=== PATIENT | female | born 1995 | race Caucasian/White ===

== ENCOUNTER → 2017-12-16 11:25 | Outpatient (CLI) | payer OTHER, SELFPAY ==
[2017-12-16 12:09] LABS: HCG,Quantitative 20 mIU/mL
== END ==
PROVIDERS: Visit Provider Obstetrics & Gynecology
DX: Z34.90 Encounter for supervision of normal pregnancy, unspecified, unspecified trimester (principal)
CPT/HCPCS: 36415; 84702

== ENCOUNTER → 2018-05-22 10:34 | Outpatient (CLI) | payer OTHER, SELFPAY ==
[2018-05-22 11:36] LABS: HCG,Quantitative 161 mIU/mL
== END ==
PROVIDERS: Visit Provider Nurse Practitioner Obstetrics & Gynecology
DX: Z34.90 Encounter for supervision of normal pregnancy, unspecified, unspecified trimester (principal)
CPT/HCPCS: 36415; 84702

== ENCOUNTER → 2018-05-24 16:44 | Outpatient (CLI) | payer OTHER, SELFPAY ==
[2018-05-24 18:19] LABS: HCG,Quantitative 594 mIU/mL
== END ==
PROVIDERS: Visit Provider Obstetrics & Gynecology
DX: Z34.90 Encounter for supervision of normal pregnancy, unspecified, unspecified trimester (principal)
CPT/HCPCS: 36415; 84702

== ENCOUNTER 2018-06-09 12:04 | Outpatient (CLI) | payer OTHER, SELFPAY ==
[2018-06-09 12:40] VITALS: BP 105/66; PULSE 96; RESP 18
[2018-06-09 13:40] VITALS: BP 122/74; PULSE 103; RESP 16
[2018-06-09 14:40] VITALS: BP 117/62; PULSE 109; RESP 18
== END 2018-06-09 14:50 | disposition home or self-care (01) ==
LOC: INF 12:06
PROVIDERS: PCP Physician Assistant; Visit Provider Obstetrics & Gynecology
DX: E86.0 Dehydration (principal)
CPT/HCPCS: 96360; 96361

== ENCOUNTER → 2018-06-28 10:16 | Outpatient (CLI) | payer BC, SELFPAY ==
--- NOTE | 2018-06-28 10:18 | US_ITS ---
US OB transvaginal HISTORY: ITS.REASON: US OB Dates ORDERING PHYSICIAN: Juliana Hart MD PATIENT AGE: 23 years COMPARISON: None FINDINGS: An intrauterine gestational sac is present with a pole with a crown-rump length of 2.54cm correlating to gestational age of 9w3d. heart tones are present with an FHR of 146 bpm's. Yolk sac is noted. The amnion and chorion have not yet fused. Adnexa: Unremarkable. IMPRESSION: Live intrauterine gestation at 9 weeks 3 days as described above. Estimated due date by Ultrasound is 01/28/2019
[2018-06-28 11:55] LABS: Basophils % 0.3 % (0.1-2.0); Eosinophils # 0.1 K/mm3 (0.0-0.4); Eosinophils % 0.8 % (0.1-12.0); Hematocrit 40.3 % (37.0-47.0); Hemoglobin 13.4 g/dL (12.2-16.2); Lymphocytes # 1.2 K/mm3 (0.7-4.5); Lymphocytes % 19.2 % (10-50); Mean Corpuscular HGB Conc 33.2 g/dL (31.8-35.4); Mean Corpuscular Hemoglobin 28.5 pg (27.0-31.2); Mean Corpuscular Volume 85.9 fl (81-99); Mean Platelet Volume 7.6 fl (7.4-10.4); Monocytes # 0.3 K/mm3 (0.1-1.0); Monocytes % 4.5 % (1.7-9.3); Neutrophils # 4.6 K/mm3 (1.8-7.8); Neutrophils % 75.2 % (37.0-80.0); Platelet Count 245 K/mm3 (142-424); Red Cell Distribution Width 12.3 % (11.5-17.5); White Blood Count 6.1 K/mm3 (4.8-10.8)
[2018-06-29 14:00] LABS: HIV Screen 4th Generation wRfx Non Reactive (Non Reactive); Hepatitis B Surface Antigen Negative (Negative); Hepatitis C Antibody 0.2 s/co ratio (0.0-0.9); Rapid Plasma Reagin Ab Titer Non Reactive (NonRea<1:1); Rubella Antibodies, IgG 1.61 index (Immune >0.99)
== END ==
PROVIDERS: PCP Physician Assistant; Visit Provider Obstetrics & Gynecology
DX: O26.841 Uterine size-date discrepancy, first trimester (principal)
CPT/HCPCS: 36415; 76817; 85025; 86592; 86703; 86762; 86850; 87340; 87380; G0432

== ENCOUNTER → 2018-06-28 10:52 | Outpatient (CLI) | payer BC, SELFPAY | PROVIDERS: Visit Provider Obstetrics & Gynecology | DX: Z34.90 Encounter for supervision of normal pregnancy, unspecified, unspecified trimester (principal) | CPT/HCPCS: 36415; 85025; 86592; 86703; 86762; 86850; 87340; 87380; G0432 ==

== ENCOUNTER → 2018-09-13 13:38 | Outpatient (CLI) | payer BC, SELFPAY ==
--- NOTE | 2018-09-13 13:43 | US_ITS ---
US OB /maternal detail: INDICATION: ITS.REASON: US OB Complete ORDERING PHYSICIAN: Juliana Hart MD PATIENT AGE: 23 years TECHNIQUE: ultrasound transabdominal scanning. COMPARISON: No previous relevant studies. FINDINGS: Single viable intrauterine gestation. Ceph position. Placenta: Post/Lat placenta grade 1. There is average amount fluid. The cervix appears satisfactory. Closed and measuring 2.4 cm in length. Complete survey performed and was unremarkable on the submitted images as in PACS. No discrete anomalies identified on survey imaging by technologist. Active fetus. Three-vessel cord with satisfactory umbilical cord insertion. 4- chamber heart noted. Survey of brain & ventricles unremarkable. Face and neck survey unremarkable. Diaphragm and chest views unremarkable. Abdomen: Both kidneys noted and unremarkable. Stomach noted and satisfactory. Spine: Survey of the spine satisfactory with no anomalies identified nor imaged. Both arms and legs noted. Amniotic Fluid: Adequate. Maternal adnexa: No significant findings. Measurements: Average ultrasound age 20w1d. Gestational Age 20w6d. Estimated due date by ultrasound age 0801/30/2019. Estimated weight 333 grams. BPD = 20w2d OFD = 206wd HC = 19w6d AC = 20w5d FL = 19w5d Growth Percentile= 13 percent Heart Rate = 144 Cerebellum = 20w1d Humerus = 19w5d HC/AC is 1.12 (1.09-1.26). CI is 76% (70-86%). FL/BPD is 66%. FL/AC is 20%. IMPRESSION: There is a single live fetus which is in cephalic presentation with average ultrasound age of 20 weeks and 1 day. heart and body motion noted. No obvious anomalies. All parameters correlate. Please see above for detail. The placenta is posterior and grade 1 with an average appearing amount of amniotic fluid
== END ==
PROVIDERS: PCP Physician Assistant; Visit Provider Obstetrics & Gynecology
DX: Z36.0 Encounter for antenatal screening for chromosomal anomalies (principal)
CPT/HCPCS: 76811

== ENCOUNTER → 2018-10-23 08:28 | Outpatient (CLI) | payer BC, SELFPAY ==
[2018-10-23 09:14] LABS: Glucose,Fasting 77 mg/dL (60-105)
[2018-10-23 10:24] LABS: Glucose 1 Hour 133 mg/dL (74-106)
== END ==
PROVIDERS: Visit Provider Obstetrics & Gynecology
DX: Z34.90 Encounter for supervision of normal pregnancy, unspecified, unspecified trimester (principal); Z3A.28 28 weeks gestation of pregnancy
CPT/HCPCS: 36415; 82951; J2790

== ENCOUNTER → 2018-10-23 10:20 | Outpatient (CLI) | payer BC, SELFPAY ==
[2018-10-23 10:29] VITALS: BMI 24.7
[2018-10-23 10:50] VITALS: BP 116/71; PULSE 92; RESP 18; TEMP 36.7; O2SAT 98
--- NOTE | 2018-10-23 10:50 | PC.NURSE ---
PATIENT PRESENTS TO THE OB FROM LAB, SHE HAD HER RHOGAM BLOOD DRAWN FOR HER PROPHYLATIC INJECTION FOR [address], [address] EDUARDO TOLD HER SHE COULD GO AHEAD AND HAVE INJECTION DONE AT THE SAME TIME HER LAB DRAW AND GLUCOSE SCREENING. 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 RHOGAM INJECTION WAS GIVEN IN HER RGM AT 1050 AND PATIENT TOLERATED WELL.
== END ==
PROVIDERS: PCP Physician Assistant; Referring Provider Obstetrics & Gynecology; Visit Provider Obstetrics & Gynecology
DX: Z34.90 Encounter for supervision of normal pregnancy, unspecified, unspecified trimester (principal); Z3A.28 28 weeks gestation of pregnancy
CPT/HCPCS: 96372; J2790

== ENCOUNTER → 2018-12-22 13:45 | Outpatient (CLI) | payer BC, SELFPAY ==
--- NOTE | 2018-12-22 13:52 | US_ITS ---
US OB follow up: Indication: ITS.REASON: US OB- GROWTH XAVI- SGA ORDERING PHYSICIAN: Juliana Hatr MD PATIENT AGE: 23 years FINDINGS: Transabdominal imaging The following parameters are obtained: Average ultrasound age is 34w5d. Estimated due date by ultrasound is 01/27/2019. Estimated weight is 2543g . This is 40 percentile BPD: 34w1d OFD: 34w4d HC: 34w0d AC: 35w2d FL: 35w1d heart rate: 133 bpm. HC/AC: 0.97 (0.93-1.11) Cephalic index: 78% (70-86%) FL/BPD: 81% (71-87%) FL/AC: 22% (20-24%) Amniotic fluid index: 11 cm No obvious anomalies evident. Placenta: Posterior, GR2 Cervix: Appears closed and measures 3 cm IMPRESSION: There is a single live fetus present which is in cephalic presentation with an average ultrasound age of 34 weeks and 5 days. Estimated weight is 2543 g which is 40 percentile. There is posterior placenta which is grade 2. Please see above for details.
== END ==
PROVIDERS: PCP Physician Assistant; Visit Provider Obstetrics & Gynecology
DX: O36.5990 Maternal care for other known or suspected poor fetal growth, unspecified trimester, not applicable or unspecified (principal)
CPT/HCPCS: 76816

== ENCOUNTER → 2018-12-27 15:57 | Outpatient (CLI) | payer BC, SELFPAY | PROVIDERS: Visit Provider Obstetrics & Gynecology | DX: Z34.90 Encounter for supervision of normal pregnancy, unspecified, unspecified trimester (principal) | CPT/HCPCS: 86403 ==

== ENCOUNTER 2019-01-11 20:50 | Inpatient (IN) ==
[2019-01-11 22:12] LABS: Basophils % 0.4 % (0.1-2.0); Eosinophils # 0.1 K/mm3 (0.0-0.4); Eosinophils % 1.1 % (0.1-12.0); Hematocrit 37.3 % (37.0-47.0); Hemoglobin 12.2 g/dL (12.2-16.2); Lymphocytes # 2.4 K/mm3 (0.7-4.5); Lymphocytes % 23.8 % (10-50); Mean Corpuscular HGB Conc 32.6 g/dL (31.8-35.4); Mean Corpuscular Volume 85.3 fl (81-99); Mean Platelet Volume 9.7 fl (7.4-10.4); Monocytes # 0.5 K/mm3 (0.1-1.0); Monocytes % 4.6 % (1.7-9.3); Neutrophils # 6.9 K/mm3 (1.8-7.8); Neutrophils % 70.1 % (37.0-80.0); Platelet Count 219 K/mm3 (142-424); Red Blood Count 4.38 M/mm3 (4.20-5.40); Red Cell Distribution Width 12.8 % (11.5-17.5); White Blood Count 9.9 K/mm3 (4.8-10.8)
--- NOTE | 2019-01-12 08:09 | History & Physical Report ---
OB - H&P: HPI Antepartum - History of Present Illness Chief complaint: Contractions History of present illness: She is a 23-year-old 1 para 0 at 38 weeks gestational age. She began having contractions last evening and came into labor and delivery. She was found to be 5 to 6 cm dilated and having regular contractions every 2 to 3 minutes. As a result of that she was admitted for delivery. - History of Present Criteria for establishing EDC:: LMP confirmed by 1st trimester US care: good care Ultrasounds: normal 1st trimester US, normal mid trimester US Obstetrical complications: none Medical complications: none - Labs GBS status: negative [facility] History I have reviewed the patient's past medical history: Yes Medical History: Reports:: Anxiety, Migraine Denies:: Depression, Diabetes Mellitus Type 1, Hyperlipidemia, Hypertension, MRSA, Seizures *Have you ever received a pneumonia vaccine?: No *Have you received a flu vaccine this season?: Yes Other Surgeries: No: Amputation: No Fractures: No - *Social History Smoking Status: Never smoker Alcohol Intake: current Alcohol Intake Frequency:: holidays/special occasions only Substance Use Type: denies use *Occupational Status:: employed *Travel in the last 8 weeks: None - Psychiatric History Pschychiatric History:: Reports:: Anxiety Denies:: Depression Family Hx:: Diabetes, Heart Attack, Thyroid Disorder, Stroke, Kidney Disease, Hypertension, Hyperlipidemia, Asthma, Anemia Para: 0 Review of Systems - Review of Systems Review of systems:: pertinent systems reviewed and negative unless documented below Meds Home Medications Medication Instructions Recorded Confirmed Type Vit Calc,Iron,Folic 1 tab PO HS 06/09/18 01/12/19 History [ Vitamin] Allergies Allergy/AdvReac Type Severity Reaction Status Date / Time cinnamon Allergy Mild Verified 01/10/19 08:32 OB - H&P: Exam - Constitutional no acute distress - Routine HEENT Exam Head: Present: normocephalic Eye: Present: EOMI, PERRL ENT: Present: mucous membranes moist - Routine Neck Exam Present: supple, full ROM - Routine Respiratory Exam Absent: accessory muscle use (good air entry bilaterally), respiratory distress, wheezes, crackles - Routine Cardiovascular Exam Present: RRR. Absent: murmur - Routine Abdominal Exam Present: soft, normoactive bowel sounds. Absent: tenderness, distended, guarding - Routine Rectal Exam Patient deferred: visual exam, digital exam - Routine Exam Patient deferred: external exam, groin exam, perineal exam Comments: Her cervix this morning is 6 to 7 cm, 90% and station 0. Nonstress test is reactive and she is haris irregularly every 7 minutes. I ruptured her membranes and there was clear fluid - Routine Extremities Exam Present: full ROM. Absent: cyanosis, edema - Routine Skin Exam Present: intact. Absent: cyanosis - Routine Neurological Exam Present: alert, oriented X3 - Routine Psychiatric Exam Present: normal affect OB - Results - Labs Labs: Short CBC 01/11/19 Range/Units 21:40 WBC 9.9 (4.8-10.8) K/mm3 Hgb 12.2 (12.2-16.2) g/dL Hct 37.3 (37.0-47.0) % Plt Count 219 (142-424) K/mm3 OB - A/P Antepartum (1) Normal delivery at term Current visit: Yes Status: Acute - Additional Plan Planning to breastfeed?: Yes Plan: expectant management Additional Information:: I ruptured her membranes and there was clear fluid. She is now 6 to 7 cm dil ated. We will expect a vaginal delivery.
[2019-01-12 08:51] LABS: Microscopic, Urine URINE MICROSCOPIC (MICROSCOPIC)
[2019-01-12 09:11] LABS: Appearance,Urine SL CLOUDY (Clear); Bilirubin,Urine Negative (Negative); Blood, Urine 3+ (Negative); Color,Urine YELLOW (Yellow); Glucose,Urine (UA) Negative (Negative); Ketones,Urine Negative (Negative); Leukocyte Esterase,Urine 1+ (Negative); Protein,Urine Negative (Negative); Specific Gravity, Urine <= 1.005 (1.005-1.030); Urobilinogen,Urine 0.2 EU/dl (0.2)
[2019-01-12 09:20] LABS: Amphetamine/Metha Screen,Urine Negative ng/mL (<1000); Barbiturates Screen,Urine Negative ng/mL (<200); Benzodiazepines Screen,Urine Negative ng/mL (<200); Cannabinoid Screen,Urine Negative ng/mL (<50); Cocaine Screen,Urine Negative ng/mL (<300); Methadone Screen,Urine Negative ng/mL (<300); Opiate Screen,Urine Negative ng/mL (<300); Phencyclidine Screen,Urine Negative ng/mL (<25)
[2019-01-12 09:33] LABS: Bacteria,Urine Trace /lpf; Squamous Epithelial Cell,Urine Occasional #/hpf (0-5)
--- NOTE | 2019-01-12 09:36 | Progress Note ---
[facility] Anesthesia Checklist - Patient Identification Patient Identification: Arm Band - Structural Data Admitted From: Home Planned Operative Procedure/s: labor epidural Consent for Planned Operative Procedure(s) Verified: Yes Verified Documents: Surgical Consent, History and Physical - NPO Status Verified Time NPO: 00:00 - Additional verifications Anesthesia Reactions: No - Airway Assessment C-Spine Mobility Assessed: Yes (mp2) TMJ Mobility Assessed: Yes Dentition: Good Dentition - Neurological Assessment Level of Consciousness: Awake, Alert - Anesthesia Plan Anesthesia Risk discussed: Yes Anesthesia Plan: Verified ASA Class: II Anesthesia Type: Epidural [facility] History I have reviewed the patient's past medical history: Yes Medical History: Reports:: Anxiety, Migraine Denies:: Depression, Diabetes Mellitus Type 1, Hyperlipidemia, Hypertension, MRSA, Seizures *Have you ever received a pneumonia vaccine?: No *Have you received a flu vaccine this season?: Yes Other Surgeries: No: Amputation: No Fractures: No - *Social History Smoking Status: Never smoker Alcohol Intake: current Alcohol Intake Frequency:: holidays/special occasions only Substance Use Type: denies use *Occupational Status:: employed *Travel in the last 8 weeks: None - Psychiatric History Pschychiatric History:: Reports:: Anxiety Denies:: Depression Family Hx:: Diabetes, Heart Attack, Thyroid Disorder, Stroke, Kidney Disease, Hypertension, Hyperlipidemia, Asthma, Anemia Para: 0
--- NOTE | 2019-01-12 13:29 | Procedure Note ---
- Delivery Note Delivery Date:: 01/12/19 Delivery Time:: 12:05 Anesthesia Type: Epidural Was labor medically induced?: No Infant delivered prior to 39 weeks?: Yes Justification for early elective delivery:: Active Labor Infant Gender: Female at 1 minute: 8 at 5 minutes: 9 Delivery Procedure:: Spontaneous vaginal delivery of liveborn female over intact perineum. Delivery uncomplicated No nuchal cord, no shoulder dystocia with delivery placed in KADY with mother immediately after umbilical cord clamped/cut, with standard nursing assessment performed Infant Apgars: 8 & 9 Placenta spontaneously expressed and examined; noted to be complete/intact. Vulva, vagina, and cervix inspected; 4th degree vaginal laceration noted, beginning 2cm beyond the introitus, with the rectal mucosa intact at the level of introitus. The repair was completed in layers, in standard fashion, util izing a Hibiclense soaked laparotomy sponge in the rectum during the repair of the rectal mucosa. The rectal mucosa was assessed with a digital exam after the mucosa was closed, and again after the muscle layer was closed and the finally, at the conclusion of the entire repair. EBL: 400cc cc All sponge/needle/instrument counts correct at conclusion of procedure Disposition: Mom/baby stable to recovery in [facility]DRP
[2019-01-13 06:36] LABS: Hematocrit 31.1 % (37.0-47.0); Hemoglobin 10.1 g/dL (12.2-16.2)
--- NOTE | 2019-01-13 17:22 | Progress Note ---
Internal Medicine - PN: Subj *Date: 01/13/19 *Time: 17:10 Interval history: PPD #1 with 4th degree laceration No unusual complaints Minimal pain; lochia appropriate Hgb dropped from 12.2 to 10.1 Ambulating and voiding without difficulty No BM yet Exam Vital signs and Labs for Last 24 Hours: Temp Pulse Resp BP Pulse Ox 98.2 F 82 18 128/76 99 01/13/19 12:00 01/13/19 12:00 01/13/19 12:00 01/13/19 12:00 01/13/19 12:00 Laboratory Results - last 24 hr 01/13/19 05:40: Hgb 10.1 L, Hct 31.1 L 01/13/19 05:40: Blood Type AB Negative, Antibody Screen Negative, Screen Negative, Baby's Rh Status Positive 01/13/19 09:45: Rhogam Infusion Rhogam release I & O for Last 24 hours: Intake & Output 01/11/19 01/12/19 01/13/19 01/14/19 11:59 11:59 11:59 11:59 Weight 159 lb Microbiology Reports for the Last 24 Hours: Microbiology 01/12/19 08:30 Urine,Clean Catch Urine Culture - Preliminary NO GROWTH AFTER 24 HOURS Narrative: CONSTITUTIONAL: no acute distress HEENT: mucous membranes moist PULMONARY: breathing unlabored without audible wheezes CV: no tachycardia or visible JVD; normal LE peripheral pulses ABD: soft, NT/ND, no guarding : fundus firm at/below umbilicus SKIN: no visible rash or lesions EXT: 1+ edema LEs NEURO: alert/oriented, no altered mental status PSYCH: appropriate mood and demeanor without anxiety/depression Assessment and Plan (1) 38 weeks gestation of Current visit: Yes Status: Acute Category: Medical Code(s): Z3A.38 - 38 weeks gestation of (2) Normal delivery at term Current visit: Yes Status: Acute Category: Medical Code(s): O80 - Encounter for full-term uncomplicated delivery (3) Fourth degree perineal laceration Current visit: Yes Status: Acute Category: Medical Code(s): O70.3 - Fourth degree perineal laceration during delivery (4) Anemia associated with acute blood loss Current visit: Yes Status: Acute Category: Medical Code(s): D62 - Acute posthemorrhagic anemia (5) Rh negative status during Current visit: Yes Status: Acute Category: Medical Code(s): O26.899 - Other specified related conditions, unspecified trimester; Z67.91 - Unspecified blood type, Rh negative - Assessment and plan all Dx Assessment and Plan for all problems:: Routine care Continue BID scheduled stool softener Continue PNV and FeSO4 Anticipate discharge tomorrow
[2019-01-14 10:27] VITALS: BP 133/78
--- NOTE | 2019-01-14 11:44 | Discharge Summary ---
General - General Admission date:: 01/11/19 Discharge date: 01/14/19 HPI HPI: PPD #2 Delivery complicated by 4th degree vaginal laceration not extending to level of introitus No complaints this am Tolerating regular diet, ambulating and voiding without difficulty +BM last night, without pain or complication Taking stool softener BID S/P Rhogam administration Hospital Course Hospital Course: per HPI Rhogam Administration: Given Objective Vital signs: Temp Pulse Resp BP Pulse Ox 98.1 F 88 18 133/78 97 01/14/19 08:00 01/14/19 08:00 01/14/19 08:00 01/14/19 08:00 01/14/19 08:00 Narrative: CONSTITUTIONAL: no acute distress HEENT: mucous membranes moist PULMONARY: breathing unlabored without audible wheezes CV: no tachycardia or visible JVD; normal LE peripheral pulses ABD: soft, NT/ND, no guarding : fundus firm at/below umbilicus SKIN: no visible rash or lesions EXT: 1+ edema LEs NEURO: alert/oriented, no altered mental status PSYCH: appropriate mood and demeanor without visible anxiety/depression DS: Diagnosis - Discharge Diagnosis (1) 38 weeks gestation of Status: Acute (2) Normal delivery at term Status: Acute (3) Fourth degree perineal laceration Status: Acute (4) Anemia associated with acute blood loss Status: Acute (5) Rh negative status during Status: Acute Discharge Plan - Patient Discharge Instructions ACTIVITY: Continue current activity DIET: regular diet Additional Instructions: No heavy lifting, no strenuous activity and nothing in the vagina for 6 weeks. Patient Instructions: Depression, Hemorrhage, Vaginal Laceration, [facility] Post Discharge Instructions - Follow up Plan Follow up with: Juliana Hart MD [Primary Care Provider] - 02/23/19 10:30 am Disposition: Home, Self-Jail Medications: Home Medications Medication Instructions Recorded Confirmed Type Vit Calc,Iron,Folic 1 tab PO HS 06/09/18 01/12/19 History [ Vitamin] Ibuprofen [Motrin 400mg 800 mg PO Q6HP PRN #30 tab 01/14/19 Rx tablet] Oxycodone HCl [OxyIR 5mg tablet] 5 mg PO Q4HP PRN #24 tab 01/14/19 Rx Sennosides [Senokot 8.6mg tablet] 8.6 mg PO BID 30 Days #60 tab 01/14/19 Rx Prescriptions/Medication Reconciliation: New Oxycodone HCl [OxyIR 5mg tablet] 5 mg PO Q4HP PRN #24 tab PRN Reason: Moderate Pain Ibuprofen [Motrin 400mg tablet] 800 mg PO Q6HP PRN #30 tab PRN Reason: Mild To Moderate Pain Sennosides [Senokot 8.6mg tablet] 8.6 mg PO BID 30 Days #60 tab Continued Vit Calc,Iron,Folic [ Vitamin] 1 tab PO HS
== END 2019-01-14 13:40 | disposition home or self-care (01) | DRG 768 ==
LOC: OBOUT 20:50 → OB 20:54
PROVIDERS: ADMIT Nurse Practitioner Obstetrics & Gynecology; ATTEND Obstetrics & Gynecology
CPT/HCPCS: 36415; 59025; 80305; 81001; 84112; 85014; 85018; 85025; 85461; 86850; 87086; 90715; J0595; J2405; J2790

== ENCOUNTER 2021-03-03 09:55 | Emergency (ER) | payer BC, SELFPAY ==
[2021-03-03 10:08] VITALS: PULSE 89; RESP 14; TEMP 36.7; O2SAT 98; BMI 30.4
[2021-03-03 10:16] VITALS: BP 118/76; PULSE 89; RESP 14; TEMP 36.7
[2021-03-03 10:26] LABS: UTC Strep Screen (Rapid) Negative (Negative)
--- NOTE | 2021-03-03 10:34 | HMH.EDUTC ---
[facility] [place] Disposition Clinical Impression: Cervical lymphadenopathy Right otitis media Qualifiers: Otitis media type: suppurative Chronicity: acute Recurrence: non-recurrent Spontaneous tympanic membrane rupture: without spontaneous rupture Qualified Code(s): H66.001 - Acute suppurative otitis media without spontaneous rupture of ear drum, right ear Disposition: Home, Self-Care Condition on Discharge: Good Instructions: DI for Otitis Media (Middle Ear Infection)-Child Additional Instructions: Follow up with PCP if not improving Prescriptions: Amoxicillin/Potassium Clav [Augmentin 875-125 Tablet] 1 tab PO Q12H 10 Days #20 tab Transmission Status: Pending to [id number] predniSONE [Prednisone 20mg Tab] 20 mg PO BID 5 Days #10 tab Transmission Status: Pending to [facility] Referrals: Ivis Jackson APRN [Primary Care Provider] - Time of Disposition: 10:42 Medical Decision Making - Doug Inquiry Pt receiving controlled substance: No Vital Signs: 03/03/21 10:08 03/03/21 10:16 Temperature 98.1 F 98.1 F Temperature Source Oral Pulse Rate 89 Pulse Rate [Left] 89 Respiratory Rate 14 14 Blood Pressure 118/76 02 Sat by Pulse Oximetry 98 - Lab Data Lab results reviewed: Yes: I reviewed the patient's lab results. Lab Results 03/03/21 10:15: Strep Scn Rapid Clinic Negative Orders (Tests/Meds): ORDERS Category Date Time Status Covid-19 Nasal PCR ([facility]) Routine Lab 03/03/21 10:14 Received Strep Screen Confirmation Stat Micro 03/03/21 10:15 Received [facility] [place] HPI - General Stated complaint: painful lumps on neck, congestion Time Seen by Provider: 03/03/21 10:35 Mode of Arrival: Ambulatory Source of Information: Patient Limitations: No Limitations Description of Symptoms (Recalled from Triage Doc. by RN): pt states it feels like she has fluid on her ears and she has swollen lymph nodes in her neck. HEENT Symptoms (Recalled from RN notes): Yes (pressure in ears and swollen lymph nodes in neck) Resp Symptoms (Recalled from RN notes): No Skin Symptoms (Recalled from RN notes): No MS Symptoms (Recalled from RN notes): No Functional Status (Recalled from RN notes): na - History of Present Illness Provider Complaint: Patient has had ears popping, headache, mild congestion, itchy eyes X 4-5 days. No fever. Now has painful, enlarged nodes in neck. No extreme fatigue. No loss of taste or smell. Onset (ago): day(s) (5) Relieving factors: none Exacerbating factors: none Associated symptoms: denies other symptoms Treatments prior to arrival: other (yrte) - Related Data Previous Rx's Medication Instructions Recorded prenat.vits,conchita,den-qmcm-rqvuk 1 tab PO HS #30 tab 02/23/19 norethindrone 1 mg-ethin. 1 cap PO ONCE #28 cap 05/01/19 estradiol 20 mcg (24)-iron 75 mg (4) capsule Amoxicillin/Potassium Clav 1 tab PO Q12H 10 Days #20 tab 03/03/21 [Augmentin 875-125 Tablet] predniSONE [Prednisone 20mg 20 mg PO BID 5 Days #10 tab 03/03/21 Tab] Allergies Allergy/AdvReac Type Severity Reaction Status Date / Time cinnamon Allergy Mild Verified 02/23/19 10:38 - Worker's Comp Is this a Worker's Comp case?: No [facility] History - Hepatitis A Screen Drug use history?: No High risk sexual behaviors?: No History of sexually transmitted infection?: No Currently employed?: No Childcare worker?: No Do you have indoor plumbing?: Yes Do you have electricity?: Yes Attestation statement:: This patient has been screened for Hepatitis A risk factors. Medical History: Reports:: Anxiety, Migraine Denies:: Depression, Diabetes Mellitus Type 1, Hyperlipidemia, Hypertension, MRSA, Seizures Other Surgeries: No: Amputation: No Fractures: No - Social History Smoking Status: Never smoker Alcohol Intake: current Alcohol Intake Frequency:: holidays/special occasions only Substance Use Type: denies use Occupational Status: employed - Psychiatric
== END 2021-03-03 10:59 | disposition home or self-care (01) ==
PROVIDERS: Emergency Provider Physician Assistant; PCP Nurse Practitioner Family
DX: H66.001 Acute suppurative otitis media without spontaneous rupture of ear drum, right ear (principal); R59.0 Localized enlarged lymph nodes; F41.9 Anxiety disorder, unspecified
CPT/HCPCS: 87880; 99203; C9803; G0463; U0003; U0005

== ENCOUNTER 2021-12-05 07:52 | Emergency (ER) | payer BC, SELFPAY ==
[2021-12-05 07:53] VITALS: BP 142/79; PULSE 129; RESP 20; TEMP 37.3; O2SAT 96; BMI 33.3
--- NOTE | 2021-12-05 07:59 | PC.NURSE ---
SHA POOLE at
[2021-12-05 08:00] VITALS: BP 141/79; PULSE 98; O2SAT 99
[2021-12-05 08:01] LABS: Coronavirus 19, PCR Not Detected (NotDetected); Influenza A, PCR Not Detected (NotDetected); Influenza B, PCR Not Detected (NotDetected)
--- NOTE | 2021-12-05 08:24 | HMH.EDPFEV ---
ED Disposition Referrals: Kayley Li APRN [Primary Care Provider] - Attestation: On 12/05/21, the high probability of a clinically significant, sudden or life threatening deterioration of the following system(s) required my full and direct attention, intervention and personal management. The time I documented below is in addition to time spent performing reported procedures but includes the following listed in this critical care notation. Medical Decision Making Vital Signs: 12/05/21 07:53 Temperature 99.2 F Temperature Source Oral Pulse Rate [Right Radial] 129 H Respiratory Rate 20 Blood Pressure [Right Arm] 142/79 H Blood Pressure Mean [Right Arm] 100 Blood Pressure Source [Right Arm] Automatic Cuff Blood Pressure Position [Right Arm] Sitting 02 Sat by Pulse Oximetry 96 Oxygen Delivery Method Room Air Orders (Tests/Meds): ORDERS Category Date Time Status Rapid PCR Covid and Flu A/B Stat Lab 12/05/21 07:56 Received Pediatric Fever HPI - General Chief Complaint: Fever Stated Complaint: VICENTE, bodyaches, chills Mode of Arrival: Ambulatory Limitations: No Limitations Description of Symptoms (Recalled from ER Triage Doc. by RN): Pt c/o chills, fever, VICENTE, bodyaches since last night - Related Data Previous Rx's Medication Instructions Recorded prenat.vits,conchita,nhv-azsz-ohrge 1 tab PO HS #30 tab 02/23/19 norethindrone 1 mg-ethin. 1 cap PO ONCE #28 cap 05/01/19 estradiol 20 mcg (24)-iron 75 mg (4) capsule Amoxicillin/Potassium Clav 1 tab PO Q12H 10 Days #20 tab 03/03/21 [Augmentin 875-125 Tablet] predniSONE [Prednisone 20mg 20 mg PO BID 5 Days #10 tab 03/03/21 Tab] Allergies Allergy/AdvReac Type Severity Reaction Status Date / Time cinnamon Allergy Mild Verified 02/23/19 10:38
--- NOTE | 2021-12-05 08:29 | HMH.EDFEV ---
ED Disposition Clinical Impression: Viral infection Disposition: Home, Self-Care Condition on Discharge: Good Instructions: Fever of Unknown Origin Additional Instructions: Take tylenol and ibuprofen as needed and stay well hydrated. Please return to the ED if you develop high fevers that don't respond to medication, difficulty breathing or development of other concerning symptoms. Referrals: Kayley Li APRN [Primary Care Provider] - Time of Disposition: 08:46 - Critical Care Critical Care Time: No Attestation: On 12/05/21, the high probability of a clinically significant, sudden or life threatening deterioration of the following system(s) required my full and direct attention, intervention and personal management. The time I documented below is in addition to time spent performing reported procedures but includes the following listed in this critical care notation. Medical Decision Making - Medical Records Medical records reviewed: Yes: I reviewed the patient's medical records. - Doug Inquiry Pt receiving controlled substance: No Vital Signs: 12/05/21 07:53 Temperature 99.2 F Temperature Source Oral Pulse Rate [Right Radial] 129 H Respiratory Rate 20 Blood Pressure [Right Arm] 142/79 H Blood Pressure Mean [Right Arm] 100 Blood Pressure Source [Right Arm] Automatic Cuff Blood Pressure Position [Right Arm] Sitting 02 Sat by Pulse Oximetry 96 Oxygen Delivery Method Room Air - Lab Data Lab results reviewed: Yes: I reviewed the patient's lab results. Lab Results 12/05/21 07:56: SARS-CoV-2 (PCR) Not detected, Influenza A Untype (PCR) Not detected, Influenza Type B (PCR) Not detected Orders (Tests/Meds): ED MEDICATIONS Discontinued Medications Generic Name Dose Route Start Last Admin Trade Name Kate PRN Reason Stop Dose Admin Ibuprofen 600 mg 12/05/21 08:35 Ibuprofen 600 Mg Tablet PO 12/05/21 08:36 ONCE ONE Medical Decision Narrative: Low grade fever, HR improved from triage VS, COVID negative, flu-like symptoms, advise supportive care, return for any worsening. Fever HPI - General Chief Complaint: Fever Stated Complaint: VICENTE, bodyaches, chills Time Seen by Provider: 12/05/21 08:31 Mode of Arrival: Ambulatory Limitations: No Limitations Description of Symptoms (Recalled from ER Triage Doc. by RN): Pt c/o chills, fever, VICENTE, bodyaches since last night - History of Present Illness HPI Narrative: 26 yo/F, no signficant PMH, presents with 2 days global VICENTE, 1 day generalized malaise, myalgias. A/W mild sore thorat. Denies N/V, diarrhea, abdominal pain, cough, SOB. Took tylenol this AM with mild improvement in symptoms. Does report +COIVD contact recently, but had 2 negative tests at home. MD complaint: fever - Related Data Previous Rx's Medication Instructions Recorded prenat.vits,conchita,[id number] 1 tab PO HS #30 tab 02/23/19 norethindrone 1 mg-ethin. 1 cap PO ONCE #28 cap 05/01/19 estradiol 20 mcg (24)-iron 75 mg (4) capsule Amoxicillin/Potassium Clav 1 tab PO Q12H 10 Days #20 tab 03/03/21 [Augmentin 875-125 Tablet] predniSONE [Prednisone 20mg 20 mg PO BID 5 Days #10 tab 03/03/21 Tab] Allergies Allergy/AdvReac Type Severity Reaction Status Date / Time cinnamon Allergy Mild Verified 02/23/19 10:38 [facility] History - Hepatitis A Screen Attestation statement:: This patient has been screened for Hepatitis A risk factors. Medical History: Reports:: Anxiety, Migraine Denies:: Depression, Diabetes Mellitus Type 1, Hyperlipidemia, Hypertension, MRSA, Seizures Other Surgeries: No: Amputation: No Fractures: No - Social History Smoking Status: Never smoker Alcohol Intake: current Alcohol Intake Frequency:: holidays/special occasions only Substance Use Type: denies use Occupational Status: employed - Psychiatric History Pschychiatric History:: Reports:: Anxiety Denies:: Depression Family Hx:: Diabetes, Heart
[2021-12-05 08:30] VITALS: BP 135/85; PULSE 98; O2SAT 96
--- NOTE | 2021-12-05 08:56 | PC.NURSE ---
DIVYA Garza at going over discharge instructions with patient
[2021-12-05 08:58] VITALS: BP 135/85; PULSE 105; RESP 18; TEMP 37.2; O2SAT 96
== END 2021-12-05 08:59 | disposition home or self-care (01) ==
PROVIDERS: Emergency Provider Emergency Medicine; PCP Nurse Practitioner Family
DX: B34.9 Viral infection, unspecified (principal); M79.10 Myalgia, unspecified site; Z20.822 Contact with and (suspected) exposure to COVID-19; Z86.16 Personal history of COVID-19; G43.909 Migraine, unspecified, not intractable, without status migrainosus; F41.9 Anxiety disorder, unspecified; Z91.018 Allergy to other foods; Z82.49 Family history of ischemic heart disease and other diseases of the circulatory system; Z83.49 Family history of other endocrine, nutritional and metabolic diseases; Z83.438 Family history of other disorder of lipoprotein metabolism and other lipidemia; Z82.5 Family history of asthma and other chronic lower respiratory diseases; Z83.3 Family history of diabetes mellitus; Z83.2 Family history of diseases of the blood and blood-forming organs and certain disorders involving the immune mechanism; Z84.1 Family history of disorders of kidney and ureter
CPT/HCPCS: 99283; C9803; U0003; U0005

== ENCOUNTER 2022-03-27 17:51 | Emergency (ER) | payer BC, SELFPAY ==
[2022-03-27 19:05] VITALS: BP 124/96; PULSE 81; RESP 18; TEMP 36.8; O2SAT 98; BMI 34.7
--- NOTE | 2022-03-27 19:09 | XR_ITS ---
PROCEDURE INFORMATION: Exam: XR Left Tibia and Fibula Exam date and time: 03/27/2022 7:16 PM Age: 26 years old Clinical indication: Pain; Lower leg; Left; Additional info: Pain in calf area TECHNIQUE: Imaging protocol: Radiologic exam of the Left tibia and fibula. Views: 2 views. COMPARISON: No relevant prior studies available. FINDINGS: Bones/joints: No acute fracture or dislocation. Soft tissues: Normal. IMPRESSION: No acute fracture or dislocation.
--- NOTE | 2022-03-27 19:09 | EXP.UTC ---
Discharge Plan Disposition Patient Disposition: Home, Self-Care Condition: Good Prescriptions Prescriptions: No Action prenat.vits,conchita,[id number] Tablet 1 tab PO HS Qty: 30 5RF Taytulla 1 mg-20 mcg (24)/75 mg (4) capsule 1 cap PO ONCE Qty: 28 11RF prednisone 20 MG tablet 20 mg PO BID 5 Days Qty: 10 0RF amoxicillin-pot clavulanate 1 EACH tablet 1 tab PO Q12H 10 Days Qty: 20 0RF Referrals Follow up/Referrals: Provider,Referral, MD [Primary Care Provider] - See instructions Activity Restrictions/Add. Instructions Additional Instructions/Restrictions: Warm soaks in warm water and epson salt may help Motrin may help with pain Wearing a acewrap may help with pain and discomfort Follow up with your Family Doctor if no improvement or any worsening of symptoms they will call you with appointment for Venous Doppler I have requested the results be sent to her Straight to ER if any life threatening symptoms Clinical Impressions Clinical Impression: Strain of calf muscle Instructions Patient Instructions: Calf Muscle Strain, DI for Calf Muscle Strain Discharge ED Provider: Cinthya Jefferson [facility] General Stated complaint: pain L leg Time Seen by Provider: 03/27/22 19:09 History of Present Illness Provider Complaint: Patient states that she has been having pain in her left calf area for over a week States that she seen her PCP last week but hasnt got any better 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 1 cap PO ONCE #28 caps 05/01/19 estradiol 20 mcg (24)-iron 75 mg (4) capsule (Taytulla) amoxicillin 875 mg-potassium 1 tab PO Q12H 10 days #20 tabs 03/03/21 clavulanate 125 mg tablet prednisone 20 mg tablet 20 mg PO BID 5 days #10 tabs 03/03/21 Allergies Allergy/AdvReac Type Severity Reaction Status Date / Time cinnamon Allergy Mild Verified 02/23/19 10:38 [facility] Medical History (Updated 03/27/22 @ 19:38 by Cinthya Jefferson APRN) Anxiety Asthma Migraine Social History (Updated 03/27/22 @ 19:17 by Becky Edouard RN) Smoking Status: Never smoker alcohol intake: current substance use type: denies use current occupational status: employed Travel in the last 8 weeks: None ROS Obtained: Yes All systems reviewed & no additional complaints except as documented and Yes Systems reviewed as appropriate & no additional complaints except as documented ENT Ears, Nose, Mouth, and Throat: Reports system reviewed and no additional complaints, except as documented and Reports as per HPI Cardiovascular Cardiovascular: Reports system reviewed and no additional complaints, except as documented and Reports as per HPI Respiratory Respiratory: Reports system reviewed and no additional complaints, except as documented and Reports as per HPI Musculoskeletal Musculoskeletal: Reports system reviewed and no additional complaints, except as documented, Reports as per HPI and Reports other (Pain in calf area for over a week denies known injury) Physical Exam General General appearance: alert and in no apparent distress Respiratory Respiratory exam: Present normal lung sounds bilaterally; Absent respiratory distress or wheezes Cardiovascular Cardiovascular exam: Present regular rate, normal rhythm and normal heart sounds Expanded Lower Extremity Exam Left: Leg image: 1. reports pain with palpation and walking denies known injury no swelling no bruising noted no discoloration or temp differnce Lower leg exam: Present tenderness; Absent swelling, abrasion, laceration, ecchymosis, dislocation or erythema Foot/toe exam
[2022-03-27 19:50] VITALS: BP 124/96; PULSE 81; RESP 18; TEMP 36.8; O2SAT 98
== END 2022-03-27 19:52 | disposition home or self-care (01) ==
PROVIDERS: Emergency Provider Nurse Practitioner
DX: S86.912A Strain of unspecified muscle(s) and tendon(s) at lower leg level, left leg, initial encounter (principal)
CPT/HCPCS: 73590; 99212; G0463

== ENCOUNTER 2022-04-24 18:43 | Emergency (ER) | payer BC, SELFPAY ==
[2022-04-24 20:10] VITALS: BP 128/89; PULSE 100; RESP 20; TEMP 36.8; O2SAT 99; BMI 32.8
--- NOTE | 2022-04-24 20:26 | EXP.UTC ---
Discharge Plan Disposition Patient Disposition: Home, Self-Care Condition: Good Prescriptions Prescriptions: New azithromycin [Zithromax Z-Aashish] 250 mg tablet See Rx Instructions .ROUTE .COMPLEX 5 Days Qty: 6 0RF Rx Instructions: For 250 mg dose pack: take 500 mg today (day 1), then 250 mg for 4 days (days 2-5) fluticasone propionate [Flonase Allergy Relief] 50 mcg/actuation spray,suspension 1 spray intranasal DAILY Qty: 16 0RF Rx Instructions: administer into each nostril No Action prenat.vits,conchita,[id number] Tablet 1 tab PO HS Qty: 30 5RF Taytulla 1 mg-20 mcg (24)/75 mg (4) capsule 1 cap PO ONCE Qty: 28 11RF prednisone 20 MG tablet 20 mg PO BID 5 Days Qty: 10 0RF amoxicillin-pot clavulanate 1 EACH tablet 1 tab PO Q12H 10 Days Qty: 20 0RF Referrals Follow up/Referrals: Kayley Li APRN [Primary Care Provider] - See instructions Activity Restrictions/Add. Instructions Additional Instructions/Restrictions: *Monitor Temp, Over the counter Motrin or Tylenol as directed/as needed Tylenol every 4 hours and Motrin every 6 hours (as long as your family doctor has told you that you can take it) for fever or pain. and straight to ER if unable to lower temp less than 101.0 after medication given *Warm salt water gargles may help to soothe the throat *Throat Lozenges? *Warm fluids like tea with honey may help to soothe the throat? *Sleep elevated *Humidifier/Vaporizer *Flonase 2 sprays in each nostril daily but be aware that it may take 2-3 days before you notice improvement Over the counter sudafed may help with nasal congestion Your throat swab was sent for culture. Those results are typically sent to your primary care. Be sure to follow up in 2-3 days with your family doctor/primary care physician if no improvement so they can review those result and treat if necessary. If you don?t have a primary care doctor, I recommend you get one but in the mean time, you will have to return to a walk in clinic Follow up IMMEDIATELY for new or worsening symptoms or no Noticeable improvement over the next 48-72 hours. 911 for difficulty breathing or swallowing Clinical Impressions Clinical Impression: URI (upper respiratory infection) Instructions Patient Instructions: Sore Throat, Middle Ear Infection Discharge ED Provider: Cinthya Jefferson [facility] HPI General Stated complaint: body aches, sore throat, congestion Mode of Arrival: Ambulatory Source of Information: Patient Limitations: No Limitations Time Seen by Provider: 04/24/22 20:26 Description of Symptoms (Recalled from Triage Doc. by RN): PATIENT C/O BODY ACHES, SORE THROAT, EAR PAIN AND DRAINAGE THAT STARTED YESTERDAY HEENT Symptoms (Recalled from RN notes): Yes Resp Symptoms (Recalled from RN notes): No Skin Symptoms (Recalled from RN notes): No MS Symptoms (Recalled from RN notes): No Functional Status (Recalled from RN notes): WNL History of Present Illness Provider Complaint: Patient states that she gets a sinus infection about once a year States that several days ago she started having sinus congestion, sorethroat, Pain in her ears, chills and drainage in the back of her throat State that today she was feeling worse so she came in to get checked Related Data Previous Rx's Medication Instructions Recorded prenat.vits,conchita,iok-dmeb-[id number] 1 tab PO HS Supplement #30 tabs 02/23/19 norethindrone 1 mg-ethin. 1 cap PO ONCE #28 caps 05/01/19 estradiol 20 mcg (24)-iron 75 mg (4) capsule [facility] amoxicillin 875 mg-potassium 1 tab PO Q12H 10 days #20 tabs 03/03/21 clavulanate 125 mg tablet prednisone 20 mg tablet 20 mg PO BID 5 days #10 tabs 03/03/21 azithromycin 250 mg tablet See Rx Instructions PO .COMPLEX 5 04/24/22 (Zithromax Z-Aashish) days #6 tabs fluticasone propionate 50 1 spray intranasal DAILY #16 grams 04/24/22 mcg/actuation nasal spray,suspension (Flonase Allergy Relief) Allerg
[2022-04-24 20:30] LABS: UTC Influenza A Antigen Negative (Negative); UTC Strep Screen (Rapid) Negative (Negative)
[2022-04-24 20:31] LABS: UTC Influenza B Antigen Negative (Negative)
[2022-04-24 20:43] VITALS: BP 128/89; PULSE 100; RESP 20; TEMP 36.8; O2SAT 99
== END 2022-04-24 20:45 | disposition home or self-care (01) ==
PROVIDERS: Emergency Provider Nurse Practitioner; PCP Nurse Practitioner Family
DX: J06.9 Acute upper respiratory infection, unspecified (principal)
CPT/HCPCS: 87804; 87880; 99212; G0463

== ENCOUNTER → 2022-07-23 09:14 | Outpatient (CLI) | payer BC, SELFPAY ==
[2022-07-24 12:11] LABS: Rapid Plasma Reagin Ab Titer Non Reactive (NonRea<1:1)
[2022-07-26 05:54] LABS: HIV Screen 4th Generation wRfx Non Reactive; Hep A Ab, IgM Negative; Hepatitis B Core Antibody IgM Negative; Hepatitis B Surface Antigen Negative
[2022-07-26 05:55] LABS: Hepatitis C Antibody 0.2
== END ==
PROVIDERS: PCP Nurse Practitioner Family; Visit Provider Obstetrics & Gynecology
DX: Z11.3 Encounter for screening for infections with a predominantly sexual mode of transmission (principal); Z11.4 Encounter for screening for human immunodeficiency virus [HIV]
CPT/HCPCS: 36415; 80074; 86593; 86703; G0432

== ENCOUNTER → 2023-03-18 14:07 | Outpatient (CLI) | payer BC, SELFPAY ==
[2023-03-18 16:02] LABS: HCG,Quantitative 39 mIU/ml (0-5.42)
[2023-03-20 10:12] LABS: Progesterone 13.1 ng/mL (.)
== END ==
PROVIDERS: PCP Nurse Practitioner Family; Visit Provider Obstetrics & Gynecology
DX: N92.6 Irregular menstruation, unspecified (principal)
CPT/HCPCS: 36415; 84144; 84702

== ENCOUNTER → 2023-03-20 13:21 | Outpatient (CLI) | payer BC, SELFPAY ==
[2023-03-20 15:04] LABS: HCG,Quantitative 75 mIU/ml (0-5.42)
== END ==
PROVIDERS: PCP Nurse Practitioner Family; Visit Provider Obstetrics & Gynecology
DX: Z32.00 Encounter for pregnancy test, result unknown (principal)
CPT/HCPCS: 84702

== ENCOUNTER → 2023-04-08 14:01 | Outpatient (CLI) | payer BC, SELFPAY ==
[2023-04-08 14:32] LABS: Basophils # 0.1 K/mm3 (0-0.2); Basophils % 0.6 % (0.1-2.0); Eosinophils # 0.2 K/mm3 (0.0-0.4); Hematocrit 39.1 % (37.0-47.0); Hemoglobin 13.7 g/dL (12.2-16.2); Lymphocytes # 1.9 K/mm3 (0.7-4.5); Lymphocytes % 23.7 % (10-50); Mean Corpuscular HGB Conc 35.1 g/dL (31.8-35.4); Mean Corpuscular Hemoglobin 29.6 pg (27.0-31.2); Mean Corpuscular Volume 84.1 fl (81-99); Monocytes # 0.4 K/mm3 (0.1-1.0); Monocytes % 4.8 % (1.7-9.3); Neutrophils # 5.6 K/mm3 (1.8-7.8); Neutrophils % 68.9 % (37.0-80.0); Platelet Count 261 K/mm3 (142-424); Red Blood Count 4.65 M/mm3 (4.20-5.40); Red Cell Distribution Width 13.4 % (11.5-17.5); White Blood Count 8.1 K/mm3 (4.8-10.8)
[2023-04-10 10:12] LABS: HIV Screen 4th Generation wRfx Non Reactive (Non Reactive); Rapid Plasma Reagin Ab Titer Non Reactive titer (NonRea<1:1)
[2023-04-15 13:22] LABS: Hepatitis B Surface Antigen Negative; Hepatitis C Antibody Non Reactive; Rubella Antibodies, IgG 2.78
== END ==
PROVIDERS: PCP Nurse Practitioner Family; Visit Provider Obstetrics & Gynecology
DX: Z34.91 Encounter for supervision of normal pregnancy, unspecified, first trimester (principal); Z3A.01 Less than 8 weeks gestation of pregnancy
CPT/HCPCS: 36415; 85025; 86593; 86703; 86762; 86850; 87086; 87340; 87380; G0432

== ENCOUNTER → 2023-04-08 23:30 | Outpatient (CLI) | payer BC, SELFPAY | PROVIDERS: PCP Nurse Practitioner Family; Visit Provider Obstetrics & Gynecology | DX: Z34.91 Encounter for supervision of normal pregnancy, unspecified, first trimester (principal) ==

== ENCOUNTER → 2023-04-13 12:03 | Outpatient (CLI) | payer BC, SELFPAY ==
[2023-04-13 14:56] LABS: HCG,Quantitative 1955 mIU/ml (0-5.42)
== END ==
PROVIDERS: PCP Nurse Practitioner Family; Visit Provider Obstetrics & Gynecology
DX: O20.9 Hemorrhage in early pregnancy, unspecified (principal)
CPT/HCPCS: 36415; 84702

== ENCOUNTER → 2023-04-24 08:33 | Outpatient (CLI) | payer BC, SELFPAY ==
[2023-04-24 09:47] LABS: HCG,Quantitative 10 mIU/ml (0-5.42)
== END ==
PROVIDERS: PCP Nurse Practitioner Family; Visit Provider Obstetrics & Gynecology
DX: O20.9 Hemorrhage in early pregnancy, unspecified (principal)
CPT/HCPCS: 36415; 84702

== ENCOUNTER → 2023-05-09 12:33 | Outpatient (CLI) | payer BC, SELFPAY ==
[2023-05-09 13:37] LABS: HCG,Quantitative < 2 mIU/ml (0-5.42)
== END ==
PROVIDERS: PCP Nurse Practitioner Family; Visit Provider Obstetrics & Gynecology
DX: O20.9 Hemorrhage in early pregnancy, unspecified (principal)
CPT/HCPCS: 84702

== ENCOUNTER → 2023-06-17 13:22 | Outpatient (CLI) | payer BC, SELFPAY ==
[2023-06-17 14:18] LABS: HCG,Quantitative 56 mIU/ml (0-5.42)
[2023-06-18 04:41] LABS: Progesterone 16.3 ng/mL (.)
== END ==
PROVIDERS: PCP Nurse Practitioner Family; Visit Provider Obstetrics & Gynecology
DX: Z34.91 Encounter for supervision of normal pregnancy, unspecified, first trimester (principal)
CPT/HCPCS: 36415; 84144; 84702

== ENCOUNTER → 2023-06-19 18:23 | Outpatient (CLI) | payer BC, SELFPAY ==
[2023-06-19 19:29] LABS: HCG,Quantitative 223 mIU/ml (0-5.42)
== END ==
LOC: LAB 18:24
PROVIDERS: PCP Nurse Practitioner Family; Visit Provider Obstetrics & Gynecology
DX: Z32.00 Encounter for pregnancy test, result unknown (principal)
CPT/HCPCS: 36415; 84702

== ENCOUNTER 2023-06-23 20:00 | Emergency (ER) | payer OTHER, SELFPAY ==
[2023-06-23 20:01] VITALS: BP 141/79; PULSE 75; RESP 18; TEMP 36.7; O2SAT 97; BMI 34.2
--- NOTE | 2023-06-23 20:23 | PC.NURSE ---
Pt lac cleansed with soap and water, lac kit at bedside
--- NOTE | 2023-06-23 20:33 | PC.NURSE ---
Rounded on patient, no needs at this time.
--- NOTE | 2023-06-23 20:48 | ED_ITS ---
Discharge Plan Disposition Patient Disposition: Home, Self-Care Prescriptions Prescriptions: No Action Classic 28 mg iron- 800 mcg tablet PO DAILY metronidazole 500 mg tablet 500 mg PO BID 7 Days Qty: 14 0RF sertraline 50 mg tablet 50 mg PO DAILY Qty: 30 2RF Referrals Follow up/Referrals: Kayley Li APRN [Primary Care Provider] - See instructions Activity Restrictions/Add. Instructions Additional Instructions/Restrictions: Wound management as discussed the Dermabond apparatus should fall off in 1 to 2 weeks please return with any other concerns or worsening symptoms. Clinical Impressions Clinical Impression: Finger laceration Instructions Patient Instructions: DI for Laceration Repair Discharge ED Provider: Daisy Hart General Adult HPI General Chief complaint: Wound/Laceration Stated complaint: AO 06/23, right hand index finger lac Time Seen by Provider: 06/23/23 20:32 Mode of Arrival: Ambulatory Source of Information: Patient Limitations: No Limitations Description of Symptoms (Recalled from ER Triage Doc. by RN): Pt presents with laceration to right pointer finger from a kitchen knife. Last tetanus less than 5 yrs. Pt states she is 5 weeks . History of Present Illness HPI narrative: Patient is a 28-year-old female present today with a right index finger laceration. Last tetanus within the last 5 years. States that she was working in the kitchen and a very new clean and sharp blade accidentally cut her finger. She has full range of motion normal sensation. This was cleaned prior to my assessment and is hemostatic. Related Data Home Medications Medication Instructions Recorded Confirmed vits no.[id number] fum tab PO DAILY 04/08/23 04/13/23 28 mg iron-folic acid 800 mcg tablet (Classic ) Previous Rx's Medication Instructions Recorded metronidazole 500 mg tablet 500 mg PO BID 7 days #14 tabs 04/10/23 sertraline 50 mg tablet 50 mg PO DAILY #30 tabs 05/05/23 Allergies Allergy/AdvReac Type Severity Reaction Status Date / Time cinnamon Allergy Mild Verified 04/13/23 11:10 [facility] Disclaimer: The information contained in this section may have been updated after the patient was seen, as this information can be updated by other users. Medical History Anxiety Asthma Fourth degree perineal laceration History of fourth degree perineal laceration History of miscarriage Maternal obesity affecting , antepartum Migraine Rh negative state in antepartum period Spotting affecting in first trimester Vaginal bleeding affecting early Surgical History [place] teeth removed Family History Other Alcoholism Asthma Coronary artery disease Diabetes Hypertension Kidney disease Substance abuse Thyroid disorder Social History Smoking Status: Never smoker alcohol intake: current substance use type: denies use current occupational status: employed Travel in the last 8 weeks: None ROS Obtained: Yes All systems reviewed & no additional complaints except as documented Physical Exam General General appearance: alert Respiratory Respiratory exam: Present normal lung sounds bilaterally Cardiovascular Cardiovascular exam: Present regular rate Extremities Exam Extremities exam: Present other (There is a 2 cm laceration that is on the radial aspect of the right index finger between the proximal interphalangeal and distal interphalangeal joint wound edges very well reapproximated no significant tension neurovascular intact) Neurological Exam Neurological exam: Present alert Medical Decision Making Doug Inquiry Pt receiving controlled substance: No Vital Signs: 06/23/23 20:01 Temperature 98.1 F Temperature Source Oral Pulse Rate [Left] 75 Respiratory Rate 18 Blood Pressure [Right Arm] 141/79 H Blood Pressure Mean [Right Arm] 99 Blood Pressure Source [Right Arm] Automatic Cuff Blood Pressure Position [Right Arm] Sitting 02 Sat by Pulse Oximetry 97 Oxygen Delivery Method Room Air Medical Decision Narrative: 28-year-old female with a very superficial laceration without significant tensile distraction on the radial aspect of the index finger of the right hand. Given the fact that it is not under a lot of stress is superficial and wound edges are reapproximated gave her 2 options including sutures and Dermabond closure. With shared decision making we opted for Dermabond and this was successfully closed she has been advised to keep this covered given her occupation and she will return with any worsening symptoms Dermabond should follow-up in 1 to 2 weeks. Procedures Laceration Laceration 1: Site: finger Side (If applicable): right Size (cm): 2 Description: linear Depth: simple, single layer Pre-repair: irrigated extensively Skin layer closed with: Dermabond Critical Care Critical Care Time Critical Care Time: No
[2023-06-23 20:53] VITALS: BP 140/74; PULSE 75; RESP 18; TEMP 36.7; O2SAT 98
== END 2023-06-23 20:54 | disposition home or self-care (01) ==
PROVIDERS: Emergency Provider Student in an Organized Health Care Education/Training Program; PCP Nurse Practitioner Family
DX: S61.210A Laceration without foreign body of right index finger without damage to nail, initial encounter (principal); J45.909 Unspecified asthma, uncomplicated; W26.0XXA Contact with knife, initial encounter
CPT/HCPCS: 12001; 99282

== ENCOUNTER 2023-07-05 14:18 | Emergency (ER) | payer OTHER, SELFPAY ==
[2023-07-05 14:19] VITALS: BP 141/90; PULSE 96; RESP 18; TEMP 36.8; O2SAT 99; BMI 34.5
--- NOTE | 2023-07-05 15:17 | PC.NURSE ---
Dr. Cortes at BS for pt eval
--- NOTE | 2023-07-05 15:17 | PC.NURSE ---
DR THOMASON AT BEDSIDE
--- NOTE | 2023-07-05 15:29 | HMH.EDGENADL ---
Discharge Plan Disposition Patient Disposition: Home, Self-Care Prescriptions Prescriptions: No Action Classic 28 mg iron- 800 mcg tablet PO DAILY metronidazole 500 mg tablet 500 mg PO BID 7 Days Qty: 14 0RF sertraline 50 mg tablet 50 mg PO DAILY Qty: 30 2RF metronidazole 0.75 % (37.5mg/5 gram) gel 1 appful vaginal HS 5 Days Qty: 70 0RF Referrals Follow up/Referrals: Kayley Li APRN [Primary Care Provider] - See instructions Activity Restrictions/Add. Instructions Additional Instructions/Restrictions: At this time it was felt you are safe to be discharged home. If new or worsening symptoms please do not hesitate to return the emergency department. Please take your promethazine 25 mg every 6 hours as needed by mouth for nausea and vomiting. Please follow-up with your OB as discussed. Clinical Impressions Clinical Impression: Vomiting during Discharge ED Provider: Nikhil Cortes General Adult HPI General Chief complaint: Nausea/Vomiting/Diarrhea Stated complaint: nausea vomiting abd pain 7 wks Time Seen by Provider: 07/05/23 15:06 Mode of Arrival: Ambulatory Source of Information: Patient Limitations: No Limitations Description of Symptoms (Recalled from ER Triage Doc. by RN): Patient states she is 7 weeks and has been vomiting 2-3 times a day. Unable to get relief. Patient states she called OB and was told she may need to come to ER for fluids. History of Present Illness HPI narrative: Patient is a 28-year-old female G4, P1 EGA 7 weeks who presents emergency department for evaluation of vomiting. Onset was acute, over the last week. Patient had had COVID exposure last few days however symptoms preceded this. She has intermittent lower abdominal pain on palpation. No dysuria. She is currently on metronidazole vaginal suppository. No other acute complaints at this time. Related Data Home Medications Medication Instructions Recorded Confirmed vits no.126-ferrous fum tab PO DAILY 04/08/23 04/13/23 28 mg iron-folic acid 800 mcg tablet (Classic ) Previous Rx's Medication Instructions Recorded metronidazole 500 mg tablet 500 mg PO BID 7 days #14 tabs 04/10/23 sertraline 50 mg tablet 50 mg PO DAILY #30 tabs 05/05/23 metronidazole 0.75 % (37.5 mg/5 1 appful vaginal HS 5 days #70 07/02/23 gram) vaginal gel grams Allergies Allergy/AdvReac Type Severity Reaction Status Date / Time cinnamon Allergy Mild Verified 04/13/23 11:10 [facility] Disclaimer: The information contained in this section may have been updated after the patient was seen, as this information can be updated by other users. Medical History Anxiety Asthma Fourth degree perineal laceration History of fourth degree perineal laceration History of miscarriage Maternal obesity affecting , antepartum Migraine Rh negative state in antepartum period Spotting affecting in first trimester Vaginal bleeding affecting early Surgical History [place] teeth removed Family History Other Alcoholism Asthma Coronary artery disease Diabetes Hypertension Kidney disease Substance abuse Thyroid disorder Social History Smoking Status: Never smoker alcohol intake: current substance use type: denies use current occupational status: employed Travel in the last 8 weeks: None ROS Obtained: Yes Systems reviewed as appropriate & no additional complaints except as documented Physical Exam General General appearance: alert and in no apparent distress Head Head exam: atraumatic and normocephalic Eye Eye exam: Present PERRL and EOMI ENT ENT exam: Present normal oropharynx and mucous membranes moist Neck Neck exam: Present normal inspection Chest Chest inspection: Present normal inspection and symmetric chest wall rise Respiratory Respiratory exam: Present normal lung sounds bilaterally; Absent respiratory distress Cardiovascular Cardiovascular exam: Present regular rate and normal rhythm Abdominal Exam Abdominal exam: Present soft; Absent tenderness Extremities Exam Extremities exam: Present normal inspection Neurological Exam Neurological exam: Present alert Psychiatric Psychiatric exam: Present normal affect Skin Skin exam: Present warm and dry Medical Decision Making Doug Inquiry Pt receiving controlled substance: No Vital Signs: 07/05/23 14:19 07/05/23 16:00 07/05/23 18:37 Temperature 98.3 F 98.3 F Temperature Source Oral Oral Pulse Rate 82 90 Pulse Rate [Right] 96 H Respiratory Rate 18 18 Blood Pressure 130/84 134/84 Blood Pressure [Right Arm] 141/90 H Blood Pressure Mean [Right Arm] 107 Blood Pressure Source Automatic Cuff Blood Pressure Source [Right Arm] Automatic Cuff 02 Sat by Pulse Oximetry 99 98 Oxygen Delivery Method Room Air Room Air Room Air Lab Data Lab Results 07/05/23 15:40: WBC 11.0 H, RBC 5.12, Hgb 14.6, Hct 42.6, MCV 83.2, MCH 28.5, MCHC 34.3, RDW 13.8, Plt Count 276, MPV 8.8, Neut % (Auto) 73.2, Lymph % (Auto) 18.4, [place] % (Auto) 3.9, Eos % (Auto) 4.0, Baso % (Auto) 0.6, Neut # (Auto) 8.0 H, Lymph # (Auto) 2.0, [place] # (Auto) 0.4, Eos # (Auto) 0.4, Baso # (Auto) 0.1, Sodium 137, Potassium 3.4 L, Chloride 104, Carbon Dioxide 27, Anion Gap 9.4, BUN 8, Creatinine 0.60, Estimated Creat Clear 195, Estimated GFR 119, Est GFR ( Amer) 144, Glucose 99, Calcium 8.9, Total Bilirubin 0.5, AST 28, ALT 25, Alkaline Phosphatase 62, Total Protein 7.5, Albumin 4.5, Globulin 3.0, Albumin/Globulin Ratio 1.5, Lipase 66, Serum HCG, Qual Positive, HCG, Quant [id number] H 07/05/23 16:00: SARS-CoV-2 (PCR) Not detected, Influenza A Untype (PCR) Not detected, Influenza Type B (PCR) Not detected 07/05/23 16:05: Urine Color Yellow, Urine Appearance Clear, Urine pH 6.5, Ur Specific [place] >= 1.030, Urine Protein Negative, Urine Glucose (UA) Negative, Urine Ketones 1+, Urine Blood Negative, Urine Nitrate Negative, Urine Bilirubin Negative, Urine Urobilinogen 0.2, Ur Leukocyte Esterase Negative, Urine RBC None, Urine WBC None, Ur Squamous Epith Cells 5-10, Amorphous Sediment Trace 07/05/23 15:40 07/05/23 15:40 Orders (Tests/Meds): ED MEDICATIONS Discontinued Medications Generic Name Dose Route Start Last Admin Trade Name Freq PRN Reason Stop Dose Admin Doxylamine Succinate/Pyridoxine 1 tab 07/05/23 15:25 07/05/23 15:57 Doxylamine 10mg/Pyridoxine 10mg Tablet PO 07/05/23 15:26 1 tab ONCE ONE Administration Lactated Ringer's 1,000 mls @ 999 mls/hr 07/05/23 15:22 07/05/23 15:52 Lactated Ringer's 1000 Ml Bag IV 07/05/23 16:22 999 mls/hr .Q1H1M ONE Administration Promethazine HCl 25 mg 07/05/23 18:26 07/05/23 18:32 Promethazine 25mg Tablet PO 07/05/23 18:27 25 mg ONCE ONE Administration Promethazine HCl 1 packet 07/05/23 18:27 07/05/23 18:33 Promethazine 25mg Tablet Take Home Pack (10) PO 07/05/23 18:28 1 packet ONCE ONE Administration ORDERS Category Date Time Status US OB <= 14 weeks fetus Stat Exams 07/05/23 16:38 Completed CBC w/Auto Diff [Complete Blood Count Auto Diff] Stat Lab 07/05/23 15:40 Completed CMP [Comprehensive Metabolic Panel] Stat Lab 07/05/23 15:40 Completed HCG Qualitative, Serum Stat Lab 07/05/23 15:40 Completed HCG,Quantitative Stat Lab 07/05/23 15:40 Completed Lipase Stat Lab 07/05/23 15:40 Completed Rapid PCR Covid and Flu A/B Stat Lab 07/05/23 16:00 Completed UA [Urinalysis and Microscopic] Stat Lab 07/05/23 16:05 Completed Medical Decision Narrative: In summary patient is a 28-year-old female past medical history described above presents emergency department for evaluation of vomiting and . Patient is hemodynamically stable nontoxic-appearing upon arrival, afebrile. Patient has yet to have location established. Differential includes normal vomiting , hyperemesis, ectopic , among others. Workup will be conducted with hematologic labs, viral swab, transvaginal ultrasound, urinalysis. Initial inventions include doxylamine and pyridoxine, crystalloid bolus. Workup reviewed by me, hematologic labs are nonactionable, urinalysis interpreted by me and negative for signs of infection. Viral swab negative. Transvaginal ultrasound remarkable for single live intrauterine gestation with estimated age of 6 weeks and 2 days, right ovarian corpus luteum with normal appearance of the left ovary and a minor amount of trace pelvic free fluid. Upon repeat evaluation patient underwent p.o. trial with successful however had persistent vomiting for which promethazine was administered. Patient was discharged with promethazine take-home pack and instructed to follow-up with her primary OB and was given return precautions. Critical Care Critical Care Time Critical Care Time: No
[2023-07-05] MEDS: LACTATED RINGERS 1000ML 1,000 ML 999 ML IV (15:52)
[2023-07-05] MEDS: DOXYLAMINE 10MG/PYRIDOXINE 10MG TABLET 1 TAB PO (15:57)
[2023-07-05 16:00] VITALS: BP 130/84; PULSE 82; O2SAT 98
[2023-07-05 16:00] LABS: Basophils # 0.1 K/mm3 (0-0.2); Basophils % 0.6 % (0.1-2.0); Eosinophils # 0.4 K/mm3 (0.0-0.4); Hematocrit 42.6 % (37.0-47.0); Hemoglobin 14.6 g/dL (12.2-16.2); Lymphocytes % 18.4 % (10-50); Mean Corpuscular HGB Conc 34.3 g/dL (31.8-35.4); Mean Corpuscular Hemoglobin 28.5 pg (27.0-31.2); Mean Corpuscular Volume 83.2 fl (81-99); Mean Platelet Volume 8.8 fl (7.4-10.4); Monocytes # 0.4 K/mm3 (0.1-1.0); Monocytes % 3.9 % (1.7-9.3); Neutrophils % 73.2 % (37.0-80.0); Platelet Count 276 K/mm3 (142-424); Red Blood Count 5.12 M/mm3 (4.20-5.40); Red Cell Distribution Width 13.8 % (11.5-17.5)
[2023-07-05 16:02] LABS: Chloride 104 mmol/L (98-107)
[2023-07-05 16:03] LABS: Potassium 3.4 mmoL/L (3.5-5.1); Sodium 137 mmol/L (136-145)
[2023-07-05 16:05] LABS: Alanine Aminotransferase 25 U/L (12-78); Aspartate Amino Transferase 28 U/L (14-36); Blood Urea Nitrogen 8 mg/dl (7-17); Creatinine Clearance Estimated 195 mL/min (50-200); Estimated Glomerular Filt Rate 119 ml/min (>60); GFR (African American) 144 ML/MIN (>60); HCG Qualitative, Serum Positive (Negative)
[2023-07-05 16:06] LABS: Albumin Level 4.5 g/dl (3.5-5.0); Albumin/Globulin Ratio 1.5 (1.1-1.8); Alkaline Phosphatase 62 U/L (38-126); Anion Gap 9.4 mEq/L (5-15); Bilirubin,Total 0.5 mg/dl (0.2-1.3); Calcium 8.9 mg/dl (8.4-10.2); Carbon Dioxide 27 mmol/L (22.0-30.0); Glucose 99 mg/dl (74-100); Lipase 66 U/L (23-300); Total Protein,Serum 7.5 g/dl (6.3-8.2)
[2023-07-05 16:08] LABS: Coronavirus 19, PCR Not Detected (NotDetected); Influenza A, PCR Not Detected (NotDetected); Influenza B, PCR Not Detected (NotDetected)
[2023-07-05 16:14] LABS: Microscopic, Urine URINE MICROSCOPIC (MICROSCOPIC)
[2023-07-05 16:26] LABS: Appearance,Urine CLEAR (Clear); Bilirubin,Urine Negative (Negative); Blood, Urine Negative (Negative); Color,Urine YELLOW (Yellow); Glucose,Urine (UA) Negative (Negative); Ketones,Urine 1+ (Negative); Leukocyte Esterase,Urine Negative (Negative); Nitrate,Urine Negative (Negative); PH,Urine 6.5 (5.0-8.5); Protein,Urine Negative (Negative); Specific Gravity, Urine >= 1.030 (1.005-1.030); Urobilinogen,Urine 0.2 EU/dl (0.2)
[2023-07-05 16:36] LABS: Amorphous Sediment,Urine Trace /lpf
--- NOTE | 2023-07-05 16:38 | US_ITS ---
PROCEDURE INFORMATION: Exam: US First Trimester, Transabdominal Exam date and time: 07/05/2023 5:24 PM Age: 28 years old Clinical indication: Lmp or gestational age (in weeks): 6 weeks 4 days; Other: Vomiting; ; Additional info: location LABS AND CLINICAL REPORTS: Last menstrual period start date: 05/20/2023 Gestational age (Established): 6 w 4 d Estimated due date (Established): 02/24/2024 TECHNIQUE: Imaging protocol: Real-time transabdominal obstetrical ultrasound of the maternal pelvis and a first trimester , less than 14 weeks 0 days, with image documentation. COMPARISON: [facility] US OB follow up 12/22/2018 2:01 PM FINDINGS: Gestation: Single live intrauterine gestation with estimated gestational age based on crown-rump length of approximately 6 weeks and 2 days +/-7 days. Yolk sac measures 3.8 mm. The pole measures 5.2 mm. The mean gestational sac diameter measures 1.7 cm. The gestational sac measures 2.3 x 2.0 x 0.9 cm. Embryonic/ heart rate: 115 bpm Extra-embryonic membranes/Placenta: Unremarkable. No subchorionic bleed. Amniotic fluid: Amniotic fluid and extra-amniotic fluid is normal for gestational age. BIOMETRY: Gestational age (AUA): 6 w 4 d +/-7 days Estimated due date (AUA): 02/24/2024 Mean sac diameter: 1.7 cm. [place]-Rump length (CRL): 5.2 mm. EGA (CRL) is 6 w 2 d +/-7 days MATERNAL: Uterus: No focal myometrial masses. Cervix: Unremarkable. Right ovary/adnexa: Right ovary measures 3.2 cm x 2.1 cm x 2.3 cm. Right ovarian volume is 8.0 mL. There is a in ovoid hypoechoic structure within the right ovary with mild peripheral flow suggesting corpus luteum.Duplex assessment demonstrates normal flow in both ovaries. Left ovary/adnexa: Left ovary measures 3.1 cm x 2.7 cm x 1.3 cm. Left ovarian volume is 5.8 mL. The left ovary appears normal. Duplex assessment demonstrates normal flow in both ovaries. Intraperitoneal space: There is a minimal amount of free fluid around the right ovary. There is also trace amount of free fluid in the cul-de-sac. IMPRESSION: 1. Single live intrauterine gestation with estimated gestational age based on pole of 6 weeks and 2 days +/-7 days. 2. Right ovarian corpus luteum. 3. Normal appearance the left ovary. 4. Minor amount of free pelvic fluid.
--- NOTE | 2023-07-05 16:40 | PC.NURSE ---
RADIOLOGY NOTIFIED OF TRANSVAGINAL US
--- NOTE | 2023-07-05 17:25 | PC.NURSE ---
patient to US
[2023-07-05] MEDS: PROMETHAZINE 25MG TABLET 25 MG PO (18:32)
[2023-07-05] MEDS: PROMETHAZINE 25MG TABLET TAKE HOME PACK (10) 1 PACKET PO (18:33)
[2023-07-05 18:37] VITALS: BP 134/84; PULSE 90; RESP 18; TEMP 36.8; O2SAT 99
[2023-07-05 19:08] LABS: HCG,Quantitative 42895 mIU/ml (0-5.42)
== END 2023-07-05 18:47 | disposition home or self-care (01) ==
PROVIDERS: Emergency Provider Emergency Medicine; PCP Nurse Practitioner Family
DX: O21.1 Hyperemesis gravidarum with metabolic disturbance (principal); Z3A.08 8 weeks gestation of pregnancy; R10.30 Lower abdominal pain, unspecified
CPT/HCPCS: 76801; 80053; 81001; 83690; 84702; 84703; 85025; 87636; 96360; 99284

== ENCOUNTER 2023-07-08 16:39 | Outpatient (CLI) | payer OTHER, SELFPAY | END 2023-07-08 23:59 | LOC: LAB.DROPOF 16:41 | PROVIDERS: PCP Obstetrics & Gynecology; Visit Provider Obstetrics & Gynecology | DX: Z34.91 Encounter for supervision of normal pregnancy, unspecified, first trimester (principal); Z3A.01 Less than 8 weeks gestation of pregnancy | CPT/HCPCS: 87086 ==

== ENCOUNTER 2023-08-03 12:57 | Outpatient (CLI) | payer OTHER, SELFPAY ==
[2023-08-03 13:31] LABS: Basophils % 0.1 % (0.1-2.0); Eosinophils # 0.2 K/mm3 (0.0-0.4); Eosinophils % 2.5 % (0.1-12.0); Hematocrit 40.5 % (37.0-47.0); Hemoglobin 13.9 g/dL (12.2-16.2); Lymphocytes # 1.4 K/mm3 (0.7-4.5); Mean Corpuscular HGB Conc 34.4 g/dL (31.8-35.4); Mean Corpuscular Volume 84.4 fl (81-99); Mean Platelet Volume 8.4 fl (7.4-10.4); Monocytes # 0.3 K/mm3 (0.1-1.0); Monocytes % 4.2 % (1.7-9.3); Neutrophils # 5.7 K/mm3 (1.8-7.8); Neutrophils % 75.2 % (37.0-80.0); Platelet Count 250 K/mm3 (142-424); Red Cell Distribution Width 13.5 % (11.5-17.5); White Blood Count 7.6 K/mm3 (4.8-10.8)
[2023-08-04 08:18] LABS: HIV Screen 4th Generation wRfx Non Reactive (Non Reactive)
[2023-08-04 12:40] LABS: Rapid Plasma Reagin Ab Titer Non Reactive titer (NonRea<1:1)
[2023-08-06 12:16] LABS: Hepatitis B Surface Antigen Negative; Hepatitis C Antibody Non Reactive
[2023-08-06 12:17] LABS: Rubella Antibodies, IgG 2.19
== END 2023-08-03 23:59 ==
PROVIDERS: PCP Nurse Practitioner Family; Visit Provider Obstetrics & Gynecology
DX: Z34.91 Encounter for supervision of normal pregnancy, unspecified, first trimester (principal); Z3A.11 11 weeks gestation of pregnancy
CPT/HCPCS: 36415; 85025; 86593; 86703; 86762; 86850; 87340; 87380; G0432

== ENCOUNTER 2023-10-07 12:32 | Outpatient (CLI) | payer SELFPAY ==
--- NOTE | 2023-10-07 12:47 | US_ITS ---
PROCEDURE: US OB /MATERNAL DETAIL CLINICAL INDICATION: 20 wk + Anatomy Scan-US OB Complete COMPARISON: US US OB <= 14 WEEKS FETUS from 07/05/2023 FINDINGS: Transabdominal sonographic images of the pelvis were obtained. From her established due date she is 19 weeks 6 days. Single viable intrauterine gestation. Cephalic position. Placenta: Posteriorplacenta grade 1. There is an average amount of fluid. The cervix appears satisfactory. Closed and measuring 4.9 cm in length. Complete survey performed and was unremarkable on the submitted images as in PACS. No discrete anomalies identified on survey imaging by technologist. Active fetus. Three-vessel cord with satisfactory umbilical cord insertion. 4- chamber heart noted. [place], aortic arch, LVOT, RVOT, three-vessel view appear normal. Survey of brain & ventricles Unremarkable. Cerebellum, thalamus, choroid plexus, cisterna magna appear normal. Face and neck survey unremarkable. Profile, nasion, lips and nose appeared normal. Diaphragm and chest views unremarkable. Abdomen: Both kidneys noted and unremarkable. Stomach and bladder noted and satisfactory. Spine: Survey of the spine satisfactory with no anomalies identified nor imaged. Cervical, thoracic, lower spine appear normal. Both arms and legs noted. Amniotic Fluid: Adequate. Measurements: Average ultrasound age 19weeks 6days. Estimated due date by ultrasound age 0902/25/2024. Estimated weight 306g BPD = 19weeks 6days HC = 19weeks 5days AC = 19weeks 1day FL = 20weeks 3days Growth Percentile= 35 Heart Rate = appears normal, rate not documented Cerebellum = 18weeks 6days Humerus = 20weeks HC/AC is 1.25 FL/BPD is 0.73 FL/AC is 0.24 IMPRESSION: 1. Viable fetus in the cephalic presentation with a posterior placenta grade 1. 2. Fluid is within normal limits. 3. Anatomical scan appears normal. 4. biometry is consistent with the dates. Dictated by: Jae Garcia MD 10/07/2023 15:25 Jae Garcia MD in [facility] 10/07/2023 15:25
== END 2023-10-07 23:59 | disposition home or self-care (01) ==
PROVIDERS: PCP Nurse Practitioner Family; Visit Provider Obstetrics & Gynecology
DX: O26.892 Other specified pregnancy related conditions, second trimester (principal); Z3A.19 19 weeks gestation of pregnancy; Z36.3 Encounter for antenatal screening for malformations; O99.210 Obesity complicating pregnancy, unspecified trimester; O99.340 Other mental disorders complicating pregnancy, unspecified trimester; F41.9 Anxiety disorder, unspecified; O20.9 Hemorrhage in early pregnancy, unspecified; Z87.59 Personal history of other complications of pregnancy, childbirth and the puerperium
CPT/HCPCS: 76811

== ENCOUNTER 2023-10-21 11:56 | Outpatient (CLI) | payer OTHER, SELFPAY ==
--- NOTE | 2023-10-21 12:21 | US_ITS ---
PROCEDURE: US OB FOLLOW UP CLINICAL INDICATION: 2 week f/u;spinal views suboptimal on anatomy scan COMPARISON: US US OB /MATERNAL DETAIL from 10/07/2023 FINDINGS: Transabdominal sonographic images of the pelvis were obtained. The following parameters are obtained: From her established due date she is 21weeks 6days Viable fetus in the breech presentation with a posterior placenta grade 1. The cervix measures 4.0 cm. heart rate: 161bpm bpm. Amniotic fluid appears normal. No obvious anomalies evident. profile seen, stomach, bladder, kidneys, four chamber heart appear normal. The spine was seen today and appears normal. IMPRESSION: 1. Viable fetus in the breech presentation with a posterior placenta grade 1. 2. The fluid is within normal limits. 3. Limited anatomical scan normal. 4. More complete views of the spine are seen today are normal. Dictated by: Jae Garcia MD 10/22/2023 08:11 Jae Garcia MD in [facility] 10/22/2023 08:11
== END 2023-10-21 23:59 | disposition home or self-care (01) ==
LOC: RAD 11:56
PROVIDERS: PCP Nurse Practitioner Family; Visit Provider Obstetrics & Gynecology
DX: O26.892 Other specified pregnancy related conditions, second trimester (principal); Z3A.22 22 weeks gestation of pregnancy
CPT/HCPCS: 76816

== ENCOUNTER 2023-12-02 15:30 | Outpatient (CLI) | payer OTHER, SELFPAY ==
[2023-12-02 15:59] LABS: Basophils % 0.4 % (0.1-2.0); Eosinophils # 0.1 K/mm3 (0.0-0.4); Eosinophils % 1.3 % (0.1-12.0); Hematocrit 35.8 % (37.0-47.0); Lymphocytes # 1.8 K/mm3 (0.7-4.5); Lymphocytes % 20.3 % (10-50); Mean Corpuscular HGB Conc 33.5 g/dL (31.8-35.4); Mean Corpuscular Hemoglobin 28.9 pg (27.0-31.2); Mean Corpuscular Volume 86.3 fl (81-99); Mean Platelet Volume 8.4 fl (7.4-10.4); Monocytes # 0.4 K/mm3 (0.1-1.0); Monocytes % 4.3 % (1.7-9.3); Neutrophils # 6.4 K/mm3 (1.8-7.8); Neutrophils % 73.7 % (37.0-80.0); Platelet Count 283 K/mm3 (142-424); Red Blood Count 4.16 M/mm3 (4.20-5.40); Red Cell Distribution Width 13.7 % (11.5-17.5); White Blood Count 8.7 K/mm3 (4.8-10.8)
[2023-12-08 15:18] LABS: Parvovirus B19, IgG 2.1 index (0.0-0.8); Parvovirus B19, IgM 0.2 index (0.0-0.8)
== END 2023-12-02 23:59 | disposition home or self-care (01) ==
LOC: LAB 15:31
PROVIDERS: PCP Nurse Practitioner Family; Visit Provider Obstetrics & Gynecology
DX: O21.9 Vomiting of pregnancy, unspecified (principal); O99.212 Obesity complicating pregnancy, second trimester; Z3A.28 28 weeks gestation of pregnancy; E66.9 Obesity, unspecified
CPT/HCPCS: 36415; 85025; 86747

== ENCOUNTER 2023-12-09 12:08 | Outpatient (CLI) | payer OTHER, SELFPAY ==
[2023-12-09 12:43] LABS: Glucose,Fasting 76 mg/dl (74-100)
[2023-12-09 14:10] LABS: Glucose 1 Hour 146 mg/dL (74-100)
[2023-12-09] MEDS: RHO(D) IMMUNE GLOBULIN 1,500 UNIT SYRINGE 1500 MCG IM (14:15)
[2023-12-09 14:20] VITALS: BP 115/74; PULSE 72; RESP 18; O2SAT 98
== END 2023-12-09 14:20 | disposition home or self-care (01) ==
LOC: LAB 13:19 → INF 14:02
PROVIDERS: PCP Nurse Practitioner Family; Visit Provider Obstetrics & Gynecology
DX: O26.893 Other specified pregnancy related conditions, third trimester (principal); O99.213 Obesity complicating pregnancy, third trimester; O99.343 Other mental disorders complicating pregnancy, third trimester; Z3A.29 29 weeks gestation of pregnancy; F41.9 Anxiety disorder, unspecified; Z67.91 Unspecified blood type, Rh negative
CPT/HCPCS: 36415; 82951; 96372; J2790

== ENCOUNTER 2023-12-16 07:51 | Outpatient (CLI) | payer MEDICAID, SELFPAY | END 2023-12-16 23:59 | disposition home or self-care (01) | LOC: LAB 07:52 | PROVIDERS: PCP Nurse Practitioner Family; Visit Provider Obstetrics & Gynecology | DX: Z34.90 Encounter for supervision of normal pregnancy, unspecified, unspecified trimester (principal) ==

== ENCOUNTER 2024-01-25 14:12 | Outpatient (CLI) | payer MEDICAID, SELFPAY ==
--- NOTE | 2024-01-25 14:13 | US_ITS ---
PROCEDURE: US OB BIOPHYSICAL PROFILE CLINICAL INDICATION: Gestational Diabetes COMPARISON: US US OB <= 14 WEEKS FETUS from 07/05/2023 US US OB /MATERNAL DETAIL from 10/07/2023 US US OB FOLLOW UP from 10/21/2023 FINDINGS: Transabdominal sonographic images of the pelvis were obtained. The following parameters are obtained: From her established due date she is 35weeks 4days Viable fetus in the cephalic presentation with a fundal placenta grade 2. The cervix measures 3.3 cm. heart rate: 143bpm bpm. Estimated weight 2650 grams, 5 lb 13 oz. BPD: 35weeks 2days, 47 percentile HC: 35weeks 4days, 18 percentile AC: 35weeks 4days, 57 percentile FL: 35 weeks 0 days, 27 percentile HC/AC: 1 FL/BPD: 0.78 FL/AC: 0.21 Growth percentile: 42 Amniotic fluid index: 11.6cm, MVP 4.23 cm. No obvious anomalies evident. profile seen, stomach, bladder, nose, lips, kidneys, three-vessel cord, four chamber heart appear normal. IMPRESSION: 1. Viable fetus in the cephalic presentation with a fundal placenta grade 2. 2. The fluid is within normal limits with an amniotic fluid index of 11.6 cm, MVP 4.23 cm. 3. There has been good interval growth with the fetus currently 42nd percentile. 4. There is good breathing movement and movement seen. Biophysical score was not done. Dictated by: Jae Garcia MD 01/25/2024 17:02 Jae Garcia MD in [facility] 01/25/2024 17:02
== END 2024-01-25 23:59 | disposition home or self-care (01) ==
LOC: RAD 14:13
PROVIDERS: PCP Nurse Practitioner Family; Visit Provider Obstetrics & Gynecology
DX: O24.419 Gestational diabetes mellitus in pregnancy, unspecified control (principal); O28.8 Other abnormal findings on antenatal screening of mother; Z3A.35 35 weeks gestation of pregnancy
CPT/HCPCS: 76816; 76819

== ENCOUNTER 2024-02-03 15:00 | Outpatient (CLI) | payer MEDICAID, SELFPAY | END 2024-02-03 23:59 | disposition home or self-care (01) | LOC: LAB.DROPOF 02-04 10:03 | PROVIDERS: PCP Obstetrics & Gynecology; Visit Provider Obstetrics & Gynecology | DX: Z34.90 Encounter for supervision of normal pregnancy, unspecified, unspecified trimester (principal) | CPT/HCPCS: 86403 ==

== ENCOUNTER 2024-07-29 08:46 | Emergency (ER) | payer MEDICAID, SELFPAY ==
[2024-07-29 09:07] VITALS: BP 122/90; PULSE 124; RESP 18; TEMP 37.1; O2SAT 95; BMI 34.3
--- NOTE | 2024-07-29 09:19 | EXP.UTC ---
Discharge Plan Disposition Patient Disposition: Home, Self-Care Condition: Good Prescriptions Prescriptions: New oseltamivir [Tamiflu] 75 mg capsule 75 mg PO BID 5 Days Qty: 10 0RF No Action paroxetine HCl [Paxil] 20 mg tablet 20 mg PO DAILY Qty: 60 10RF Classic 28 mg iron- 800 mcg tablet 1 tab PO DAILY Referrals Follow up/Referrals: Kayley Li APRN [Primary Care Provider] - See instructions Activity Restrictions/Add. Instructions Additional Instructions/Restrictions: Drink plenty of fluids. Take tylenol for pain or fever. Take the medications as directed. Follow up with your regular doctor. GO TO THE ER FOR ANY WORSENING SYMPTOMS Clinical Impressions Clinical Impression: Pharyngitis, Exposure to strep throat, Acute viral syndrome Instructions Patient Instructions: Sore Throat, DI for Pharyngitis/Tonsillopharyngitis -- Adult Print Language Print Language: Georgian Discharge ED Provider: Jose King [facility] General Stated complaint: headache and cough Mode of Arrival: Ambulatory Source of Information: Patient Limitations: No Limitations Time Seen by Provider: 07/29/24 09:18 Description of Symptoms (Recalled from Triage Doc. by RN): Reports headache, body aches, congestion, cough, and sore throat. HEENT Symptoms (Recalled from RN notes): Yes Resp Symptoms (Recalled from RN notes): No Skin Symptoms (Recalled from RN notes): No MS Symptoms (Recalled from RN notes): No Functional Status (Recalled from RN notes): wnl History of Present Illness Provider Complaint: She states that for the past 1 days she has felt progressively worse, had a sore throat, body aches and a fever. She is breast feeding her infant. Related Data Home Medications ?Medication ?Instructions ?Recorded ?Confirmed vits no.126-ferrous fum 1 tab PO DAILY 04/08/23 03/29/24 28 mg iron-folic acid 800 mcg tablet (Classic ) Previous Rx's ?Medication ?Instructions ?Recorded paroxetine HCl 20 mg tablet (Paxil) 20 mg PO DAILY #60 tabs 07/08/23 oseltamivir 75 mg capsule (Tamiflu) 75 mg PO BID 5 days #10 caps 07/29/24 Allergies Allergy/AdvReac Type Severity Reaction Status Date / Time cinnamon Allergy Mild Verified 03/29/24 10:15 Worker's Comp Is this a Worker's Comp case?: No [facility] Disclaimer: The information contained in this section may have been updated after the patient was seen, as this information can be updated by other users. Medical History Anemia associated with acute blood loss Gestational diabetes mellitus Restless legs Anxiety disorder affecting , antepartum Nausea and vomiting in Vaginal bleeding affecting early Rh negative state in antepartum period Maternal obesity affecting , antepartum History of miscarriage Spotting affecting in first trimester History of fourth degree perineal laceration Migraine Anxiety Asthma Fourth degree perineal laceration Nausea/vomiting in Surgical History [place] teeth removed Family History Other Alcoholism Asthma Coronary artery disease Diabetes Hypertension Kidney disease Substance abuse Thyroid disorder Social History Smoking Status: Never smoker alcohol intake: current alcohol intake frequency: holidays/special occasions only substance use type: denies use current occupational status: employed Travel in the last 8 weeks: None Have you lived/traveled outside US in past 30 days?: No Contact w/someone who lives/traveled outside US past 30 days?: No Exposure to someone with infectious disease in past 14 days?: No Do you have a fever (greater than 100.4 F or 38 C)?: No Have you tested positive for COVID-19: No Exposed to someone with COVID-19 in past 14 days?: No Do you have a sore throat?: No Do you have a cough?: No Do you have any weakness?: No Do you have any diarrhea?: No Are you experiencing any unusual bleeding?: No Do you have any muscle aches/pain?: No Do you have any abdominal pain?: No Are you experiencing loss of taste or smell?: No ROS Obtained: Yes All systems reviewed & no additional complaints except as documented Constitutional Constitutional: Reports chills and Reports fever(s) Eyes Eyes: Denies eye discharge ENT Ears, Nose, Mouth, and Throat: Reports as per HPI Cardiovascular Cardiovascular: Denies chest pain Respiratory Respiratory: Denies chest congestion and Reports cough Gastrointestinal Gastrointestingal: Reports nausea; Denies abdominal pain, constipation, cramping, diarrhea or vomiting Musculoskeletal Musculoskeletal: Denies arthralgias Integumentary/Breasts Skin/Breast: Denies rash Neurologic Neurologic: Denies paresthesias Physical Exam General General appearance: alert and in no apparent distress Head Head exam: atraumatic, normocephalic and normal inspection Eye Eye exam: Present normal appearance, PERRL and EOMI ENT ENT exam: Present mucous membranes moist and normal external ear exam Expanded ENT Exam TM/Canal exam: Bilateral TM: erythema and bulging Nose exam: Absent sinus tenderness Mouth exam: Present normal external inspection; Absent drooling Teeth exam: Present normal inspection Throat exam: Present tonsillar erythema, tonsillomegaly and tonsillar exudate Neck Neck exam: Present normal inspection, full ROM and trachea midline; Absent tenderness, meningismus or lymphadenopathy Chest Chest inspection: Present normal inspection and symmetric chest wall rise; Absent tenderness Respiratory Respiratory exam: Present normal lung sounds bilaterally; Absent respiratory distress, wheezes, stridor or accessory muscle use Cardiovascular Cardiovascular exam: Present regular rate and normal rhythm; Absent systolic murmur or diastolic murmur Abdominal Exam Abdominal exam: Present soft and normal bowel sounds; Absent distention, tenderness, guarding, rebound or rigidity Extremities Exam Extremities exam: Present normal inspection and normal capillary refill; Absent calf tenderness Back Exam Back exam: Present normal inspection and full ROM; Absent tenderness, CVA tenderness (R) or CVA tenderness (L) Neurological Exam Neurological exam: Present alert, oriented X3 and CN II-XII intact Psychiatric Psychiatric exam: Present normal affect and normal mood Skin Skin exam: Present warm, dry, intact and normal color Medical Decision Making Medical Records Medical records reviewed: No I reviewed the patient's medical records. Screening: Per USPSTF and CDC recommendations, given the prevalence of disease in our region, it is our hospital?s policy to screen for HIV and viral Hepatitis for all patients aged 18 and over and those with ongoing risk factors. Doug Inquiry Pt receiving controlled substance: No Vital Signs: 07/29/24 09:07 Temperature 98.7 F Temperature Source Oral Pulse Rate [Radial] 124 H Respiratory Rate 18 Blood Pressure [Right Arm] 122/90 Blood Pressure Mean [Right Arm] 100 Blood Pressure Source [Right Arm] Automatic Cuff Blood Pressure Position [Right Arm] Sitting 02 Sat by Pulse Oximetry 95 Oxygen Delivery Method Room Air Lab Data Lab results reviewed: Yes I reviewed the patient's lab results.
[2024-07-29 09:24] LABS: UTC Influenza A Antigen Negative (Negative); UTC Influenza B Antigen Negative (Negative); UTC Strep Screen (Rapid) Negative (Negative)
[2024-07-29 09:56] VITALS: BP 122/90; PULSE 124; RESP 18; TEMP 37.1; O2SAT 95
[2024-07-29 10:01] LABS: Coronavirus 19, PCR Not Detected (NotDetected); Human Rhinovirus Not Detected (NotDetected); Influenza B, PCR Not Detected (NotDetected); Respiratory Syncytial Virus Not Detected (NotDetected)
[2024-07-29 15:06] LABS: Influenza A, PCR Detected (NotDetected)
== END 2024-07-29 10:00 | disposition home or self-care (01) ==
PROVIDERS: Emergency Provider Nurse Practitioner Family
DX: J02.9 Acute pharyngitis, unspecified (principal); B34.9 Viral infection, unspecified; Z20.818 Contact with and (suspected) exposure to other bacterial communicable diseases
CPT/HCPCS: 87631; 87804; 87880; 99212; G0381